=== PATIENT | male | born 1980 | race Caucasian/White ===

== ENCOUNTER 2020-05-09 18:42 | Emergency (ER) | payer SELFPAY ==
[~2020-05-09] VITALS: Ht 180.3 cm; Wt 79.5 kg
[2020-05-09] MEDS ORDERED: IBUP200T45 PO (18:52)
--- NOTE | 2020-05-09 19:57 | REP ---
INDICATION: fall injury. COMPARISON: None. TECHNIQUE: Four views FINDINGS: No acute fracture or destructive osseous lesion. The mortise is intact. There is a plantar calcaneal heel spur IMPRESSION: As above <Electronically signed by Micah Barrow > 05/09/[id number]
[2020-05-09 20:55] VITALS: BP 126/81
--- NOTE | 2020-05-09 21:19 | REPVR ---
PROCEDURE INFORMATION: Exam: XR Left Calcaneus Exam date and time: 05/09/2020 8:49 PM Age: 39 years old Clinical indication: Pain; Ankle and heel; Left; Additional info: Trauma, fall from ladder TECHNIQUE: Imaging protocol: XR of the Left calcaneus. Views: 2 or more views. COMPARISON: CR Ankle, complete 05/09/2020 6:55 PM FINDINGS: Bones/joints: Normal. Soft tissues: Normal. IMPRESSION: No acute findings. Electronically signed by: Trey Blackwell On 05/09/2020 21:18:41 PM
== END 2020-05-09 21:05 | disposition home or self-care (01) ==
LOC: M ED 18:42
DX: S93.402A Sprain of unspecified ligament of left ankle, initial encounter (principal); Y30.XXXA Falling, jumping or pushed from a high place, undetermined intent, initial encounter; Y92.9 Unspecified place or not applicable; Y93.89 Activity, other specified; Y99.0 Civilian activity done for income or pay; M77.32 Calcaneal spur, left foot; F17.200 Nicotine dependence, unspecified, uncomplicated

== ENCOUNTER 2021-10-22 13:37 | Emergency (ER) | payer OTHER, SELFPAY ==
[~2021-10-22] VITALS: Ht 180.3 cm; Wt 83.7 kg
[2021-10-22 13:37] VITALS: BP 141/96
[~2021-10-22 13:37] MED LIST: IBUP200T46 PO
[2021-10-22] MEDS ORDERED: PROPARACAINE 0.5% OPHTH SOL 15ML OD ONE (14:10)
[2021-10-22] MEDS ORDERED: FLUORESCEIN OPHTH 1 MG STRIP OD ONE (14:10)
[2021-10-22] MEDS ORDERED: POLYSOL OP (14:25)
== END 2021-10-22 14:37 | disposition home or self-care (01) ==
LOC: M ED 13:37
DX: T15.01XA Foreign body in cornea, right eye, initial encounter (principal); F17.200 Nicotine dependence, unspecified, uncomplicated; Y92.9 Unspecified place or not applicable; Y93.H3 Activity, building and construction; Y99.0 Civilian activity done for income or pay